=== PATIENT | male | born 1955 | race Asian ===

== ENCOUNTER 2020-06-23 15:49 | Emergency (ER) | payer OTHER ==
[~2020-06-23] VITALS: Ht 172.7 cm; Wt 104.8 kg
[2020-06-23 15:51] VITALS: BP 178/100; TEMP 98.1
[2020-06-23 16:19] LABS: PLATELET COUNT 286 K/uL (142-355)
[2020-06-23] MEDS ORDERED: AMLODIPINE BESYLATE PO (22:17)
[2020-06-23] MEDS ORDERED: [UNRECOGNIZED DRUG - OTHER] EX (22:22)
[2020-06-23] MEDS ORDERED: CARV12.5 PO (22:29)
[2020-06-23] MEDS ORDERED: DOCU100C10 PO (22:30)
[2020-06-23] MEDS ORDERED: FURO40TA93 PO (22:32)
[2020-06-23] MEDS ORDERED: ESCI20TA PO (22:32)
[2020-06-23] MEDS ORDERED: GABA300C2 PO (22:36)
[2020-06-23] MEDS ORDERED: LANTUS SOL100 UNIT/M SC (22:37)
[2020-06-23] MEDS ORDERED: KEPPRA1000 MG PO (22:39)
[2020-06-23] MEDS ORDERED: MOBIC15 MG PO (22:40)
[2020-06-23] MEDS ORDERED: METF100038 PO (22:41)
[2020-06-23] MEDS ORDERED: MULT VITAMI1 PO (22:42)
[2020-06-23] MEDS ORDERED: SPIRONOLACT25 MG PO (22:43)
== END 2020-06-23 17:02 | disposition still patient (30) ==
LOC: ED 15:49
PROVIDERS: Hospitalist
DX: R46.89 Other symptoms and signs involving appearance and behavior (principal); R56.9 Unspecified convulsions; Z11.52 Encounter for screening for COVID-19; Z04.6 Encounter for general psychiatric examination, requested by authority
CPT/HCPCS: 80053; 81000; 85027; 87635; 93005; 99285; U0003